=== PATIENT | female | born 1995 | race Caucasian/White ===

== ENCOUNTER 2022-08-08 19:05 | Observation (INO) | payer OTHER, SELFPAY ==
[2022-08-08] VITALS (10 sets, daily range): BP systolic 110; BP diastolic 73; PULSE 73–91; RESP 16; TEMP 36.6; O2SAT 97–100; BMI 25.7
[2022-08-08 19:36] LABS: Glucose Point of Care 82 mg/dl (65-105)
[2022-08-08 20:33] LABS: Hematocrit 37.9 % (37.0-47.0); Hemoglobin 13.1 g/dL (12.0-15.0); Mean Corpuscular HGB Conc 34.6 g/dl (32-36); Mean Corpuscular Hemoglobin 31.3 pg (26-34); Mean Corpuscular Volume 90.5 fl (80-100); Mean Platelet Volume 11.9 fl (7.4-10.4); Platelet Count Result 166 k/mm3 (150-375); Red Blood Count 4.19 M/mm3 (4.2-5.4); Red Cell Distribution Width 12.8 % (11.5-14.5); White Blood Count 17.5 K/mm3 (4.5-10.0)
[2022-08-08 20:40] LABS: Appearance Urine Slightly Cloudy (Clear); Bilirubin Urine Negative (Negative); Blood Urine Negative (Negative); Color Urine Yellow (Yellow); Glucose Urine UA Negative (Negative); Ketones Urine Trace mg/dL (Negative); Leukocyte Esterase Ur 3+ LEU/UL (Negative); Nitrate Urine Negative (Negative); Protein Urine Trace mg/dL (Negative); Urobilinogen Urine 0.2 mg/dL (<2.0)
[2022-08-08 20:45] LABS: Bacteria Urine 3+ /hpf; Mucus Urine Rare /lpf; Squamous Epithelial Cell Urine Moderate /hpf (Few); WBC Urine 51-75 /hpf
[2022-08-08 20:47] LABS: Alanine Aminotransferase 21 U/L (6-35); Albumin Level 3.7 g/dL (3.5-5.1); Alkaline Phosphatase 100 U/L (38-126); Anion Gap 10 mmol/L (8-16); Aspartate Amino Transferase 24 U/L (14-36); Bilirubin,Total 0.4 mg/dL (0.2-1.3); Blood Urea Nitrogen 9 mg/dL (7-17); Calcium 8.6 mg/dL (8.4-10.2); Carbon Dioxide 22 mmol/L (22-30); Chloride 102 mmol/L (98-107); Estimated Glomerular Filt Rate > 60; Glucose 87 mg/dL (65-110); Potassium 3.7 mmol/L (3.4-5.0); Sodium 134 mmol/L (137-145)
--- NOTE | 2022-08-08 20:47 | OBADM ---
This patient, Tiffanie Lam, admitted to the OB room OB Post 116 for observation. Patient/family oriented to hospital policies and general routines including ID bracelet, bed and alarms, visiting hours, pain management, procedures, bathroom and other care routines, personal items, smoking policy, room service/diet, and visiting hours. Patient/Family are encouraged to report perceived risks to care and to ask questions if they do not understand what they are told or what they should do.
[2022-08-08 20:55] LABS: Add Urine Microscopic? YES
[2022-08-08 21:11] LABS: SARS-CoV-2 RNA PCR Negative
[2022-08-08] MEDS: AMPICILLIN TRIHYDRATE 500 MG CAPSULE PO (21:50)
--- NOTE | 2022-08-09 14:24 | PM.OBTRLD ---
OB - Triage/Final Diagnosis Visit Information Date of evaluation: 08/08/22 Reason for evaluation: threatened labor Comments/Additional reasons for admission: I have assessed the risk for this patient, Tiffanie Lam, and determined that she would benefit from observation care. Evaluation Laboratory results: Laboratory Tests 08/08/22 08/08/22 08/08/22 19:29 20:14 20:14 WBC 17.5 H RBC 4.19 L Hgb 13.1 Hct 37.9 MCV 90.5 MCH 31.3 MCHC 34.6 RDW 12.8 Plt Count 166 MPV 11.9 H Sodium 134 L Potassium 3.7 Chloride 102 Carbon Dioxide 22 Anion Gap 10 BUN 9 Creatinine 0.90 Estim Creat Clear Calc Not Reportable Estimated GFR > 60 Glucose 87 POC Capillary Glucose 82 Calcium 8.6 Total Bilirubin 0.4 AST 24 ALT 21 Alkaline Phosphatase 100 Total Protein 7.0 Albumin 3.7 Urine Color Urine Appearance Urine pH Ur Specific [place] Urine Protein Urine Glucose (UA) Urine Ketones Ur Blood (Man) Urine Nitrate Urine Bilirubin Urine Urobilinogen Leukocyte Esterase Rfl Urine RBC Urine WBC Ur Squamous Epith Cells Urine Bacteria Urine Mucus SARS-CoV-2 RNA (RT-PCR) 08/08/22 08/08/22 20:14 20:23 WBC RBC Hgb Hct MCV MCH MCHC RDW Plt Count MPV Sodium Potassium Chloride Carbon Dioxide Anion Gap BUN Creatinine Estim Creat Clear Calc Estimated GFR Glucose POC Capillary Glucose Calcium Total Bilirubin AST ALT Alkaline Phosphatase Total Protein Albumin Urine Color Yellow Urine Appearance Slightly cloudy Urine pH 6.0 Ur Specific [place] 1.020 Urine Protein Trace Urine Glucose (UA) Negative Urine Ketones Trace Ur Blood (Man) Negative Urine Nitrate Negative Urine Bilirubin Negative Urine Urobilinogen 0.2 Leukocyte Esterase Rfl 3+ H Urine RBC 11-20 H Urine WBC 51-75 H Ur Squamous Epith Cells Moderate H Urine Bacteria 3+ H Urine Mucus Rare SARS-CoV-2 RNA (RT-PCR) Negative Vital signs: Vital Signs - 24 hr 08/08/22 19:27 08/08/22 19:37 08/08/22 19:42 Temperature 36.6 C Pulse Rate 87 Respiratory Rate 16 Blood Pressure 110/73 Pulse Oximetry 97 98 Oxygen Delivery 08/08/22 19:47 08/08/22 19:52 08/08/22 19:57 Temperature Pulse Rate Respiratory Rate Blood Pressure Pulse Oximetry 98 99 100 Oxygen Delivery 08/08/22 20:02 08/08/22 20:07 08/08/22 20:12 Temperature Pulse Rate Respiratory Rate Blood Pressure Pulse Oximetry 100 97 97 Oxygen Delivery 08/08/22 20:17 08/08/22 21:36 Temperature Pulse Rate Respiratory Rate Blood Pressure Pulse Oximetry 100 Oxygen Delivery Room Air
== END 2022-08-08 21:53 | disposition home health service (06) ==
PROVIDERS: Advanced Practice Midwife; Admitting Provider Obstetrics & Gynecology; PCP Family Medicine; Visit Provider Obstetrics & Gynecology
DX: O47.03 False labor before 37 completed weeks of gestation, third trimester (principal); Z3A.33 33 weeks gestation of pregnancy; Z20.822 Contact with and (suspected) exposure to COVID-19
CPT/HCPCS: 36415; 80053; 81001; 82948; 85027; 87086; 87088; A9270; C9803; G0378; G0379; U0003; U0005

== ENCOUNTER 2022-09-20 15:38 | Inpatient (IN) | payer OTHER, SELFPAY ==
[2022-09-20] VITALS (25 sets, daily range): BP systolic 100–135; BP diastolic 61–90; PULSE 63–80; TEMP 35.9–36.6; BMI 31.8
[2022-09-20 16:26] LABS: Basophils Percent Auto 0.3 % (0.2-1.2); Eosinophils Absolute Auto 0.1 K/mm3 (0-0.3); Eosinophils Percent Auto 0.6 % (0-4.4); Hematocrit 38.7 % (37.0-47.0); Hemoglobin 13.5 g/dL (12.0-15.0); Immature Granulocyte Absolute 0.06 K/mm3 (0.00-0.031); Immature Granulocyte Percent A 0.6 % (0-0.5); Lymphocytes Absolute Auto 1.87 K/mm3 (0.9-3.2); Lymphocytes Percent Auto 17.2 % (18.3-44.2); Mean Corpuscular HGB Conc 34.9 g/dl (32-36); Mean Corpuscular Hemoglobin 31.2 pg (26-34); Mean Corpuscular Volume 89.4 fl (80-100); Mean Platelet Volume 12.6 fl (7.4-10.4); Monocytes Absolute Auto 0.8 K/mm3 (0.1-0.6); Monocytes Percent Auto 7.2 % (2.6-8.5); Neutrophils Percent Auto 74.1 % (45.5-73.1); Platelet Count Result 141 k/mm3 (150-375); Red Blood Count 4.33 M/mm3 (4.2-5.4); Red Cell Distribution Width 12.7 % (11.5-14.5); White Blood Count 10.9 K/mm3 (4.5-10.0)
--- NOTE | 2022-09-20 16:43 | LDADM ---
This patient, Tiffanie Lam, was admitted to Labor/Delivery/Recovery 107 on 09/20/22 at 15:38. Plans for labor, pain management and were discussed with patient. Patient/family oriented to hospital policies and general routines including ID bracelet, bed and alarms, visiting hours, pain management, procedures, bathroom and other care routines, personal items, smoking policy, room service/diet and guest tray routines, infant security routines, and visiting hours. Patient/Family are encouraged to report perceived risks to care and to ask questions if they do not understand what they are told or what they should do. See OBIX for further documentation.
--- NOTE | 2022-09-20 17:16 | WPDANESEPP ---
Anes - Eval Pre Procedure Procedure: labor epidural Date/Time: 09/20/22 17:16 Pre Op Diagnosis: iol Patient Data Age: 27 Gender: F Height: 1.63 m Weight: 84 kg Last Vital Signs Pulse 75 09/20/22 17:16 BP 118/83 09/20/22 17:16 O2 Del Method Room Air 09/20/22 16:43 Allergies Allergy/AdvReac Type Severity Reaction Status Date / Time No Known Allergies Allergy Verified 08/08/22 21:26 Home Medications Medication Instructions Recorded Confirmed Type ondansetron 4 mg disintegrating 4 mg PO Q6H #8 tabs 08/08/22 Rx tablet albuterol sulfate 90 mcg/actuation 2 puff inhalation QID PRN Wheezing 08/25/22 08/25/22 History aerosol inhaler levothyroxine 50 mcg tablet 50 mcg PO DAILY 08/25/22 08/25/22 History prenat.vits,mario,[id number] 1 tablet PO HS 08/25/22 08/25/22 History Laboratory Tests 09/20/22 09/20/22 09/20/22 16:18 16:18 16:18 WBC 10.9 K/mm3 H K/mm3 (4.5-10.0) RBC 4.33 M/mm3 M/mm3 (4.2-5.4) Hgb 13.5 g/dL g/dL (12.0-15.0) Hct 38.7 % % (37.0-47.0) MCV 89.4 fl fl (80-100) MCH 31.2 pg pg (26-34) MCHC 34.9 g/dl g/dl (32-36) RDW 12.7 % % (11.5-14.5) Plt Count 141 k/mm3 L k/mm3 (150-375) MPV 12.6 fl H fl (7.4-10.4) Immature Gran % (Auto) 0.6 % H % (0-0.5) Neut % (Auto) 74.1 % H % (45.5-73.1) Lymph % (Auto) 17.2 % L % (18.3-44.2) [place] % (Auto) 7.2 % % (2.6-8.5) Eos % (Auto) 0.6 % % (0-4.4) Baso % (Auto) 0.3 % % (0.2-1.2) Lymph # (Auto) 1.87 K/mm3 K/mm3 (0.9-3.2) [place] # (Auto) 0.8 K/mm3 H K/mm3 (0.1-0.6) Eos # (Auto) 0.1 K/mm3 K/mm3 (0-0.3) Baso # (Auto) 0.0 K/mm3 K/mm3 (0.0-0.1) Abs Immat Gran (auto) 0.06 K/mm3 H K/mm3 (0.00-0.031) Absolute Neuts (auto) 8.0 K/mm3 H K/mm3 (1.3-6.7) Absolute Nucleated RBC 0.0 K/mm3 K/mm3 (0.0-0.012) Nucleated RBC % 0.0 % % (0.0-0.2) RPR Pending Blood Type O Positive Antibody Screen Pending Patient hx anesthesia problems: none Family hx anesthesia problems: none Results Review: All pre-operative results and documents have been reviewed as part of the pre-operative evaluation. [facility] Past Medical History Medical History (Updated 09/20/22 @ 17:17 by Marleni Cervantes CRNA) Hypothyroid Family History Family History Father Congestive heart failure Social History Social History Smoking status: Never smoker Substance use: never Spiritual care concerns: No Exam Day of Procedure 09/20/22 17:16 Patient weight: obese Heart: regular rate and rhythm Lungs: normal air movement Airway: Mallampati scale Neurological: alert and oriented
[2022-09-20 17:25] LABS: Rapid Plasma Reagin Non-Reactive (NonReactive)
[2022-09-20] MEDS: miSOPROStol 25 MCG TABLET VAGINAL (18:40)
[2022-09-20] MEDS: LACTATED RINGERS 1,000 ML 125 ML IV CONT (23:10)
[2022-09-21] VITALS (186 sets, daily range): BP systolic 91–145; BP diastolic 35–106; PULSE 56–132; RESP 16–19; TEMP 36–37.1; O2SAT 90–100
[2022-09-21] MEDS: LACTATED RINGERS 1,000 ML 125 ML IV CONT ×2 (00:18→14:00)
[2022-09-21] MEDS: OXYTOCIN 30 UNITS/NS 500 ML 30 UNITS/500 ML BAG IV CONT (04:05)
--- NOTE | 2022-09-21 07:36 | PM.IMHP ---
H&P: HPI History of Present Illness Date/Time: 09/21/22 07:36 Chief Complaint: induction of labor Narrative: Tiffanie is a 27yo G1 at 40.1 for IOL, elective. complicated by hypothyroid and anxiety. GBS neg. Received cytotec x1, labored on that, pitocin augmentation started a couple hours ago. Review of Systems Review of Systems: All systems reviewed & are unremarkable except as noted in HPI and below PMFSH Past Medical History Medical History (Updated 09/21/22 @ 07:37 by Rita Roach MD) Hypothyroid Family History Family History Father Congestive heart failure Social History Social History Smoking status: Never smoker Substance use: never Spiritual care concerns: No Meds Home Medications and Allergies Home Medications Medication Instructions Recorded Confirmed Type ondansetron 4 mg disintegrating 4 mg PO Q6H #8 tabs 08/08/22 Rx tablet albuterol sulfate 90 mcg/actuation 2 puff inhalation QID PRN Wheezing 08/25/22 08/25/22 History aerosol inhaler levothyroxine 50 mcg tablet 50 mcg PO DAILY 08/25/22 09/21/22 History prenat.vits,mario,[id number] 1 tablet PO HS 08/25/22 08/25/22 History Allergies Allergy/AdvReac Type Severity Reaction Status Date / Time No Known Allergies Allergy Verified 09/21/22 01:54 Vital Signs Vital Signs - 24 hr 09/20/22 16:16 09/20/22 16:31 09/20/22 16:46 Temperature Pulse Rate 70 69 73 Blood Pressure 125/90 123/78 122/86 Oxygen Delivery 09/20/22 17:01 09/20/22 17:16 09/20/22 17:31 Temperature Pulse Rate 70 75 67 Blood Pressure 121/79 118/83 118/85 Oxygen Delivery 09/20/22 17:46 09/20/22 18:16 09/20/22 18:31 Temperature Pulse Rate 69 73 78 Blood Pressure 117/84 122/84 124/86 Oxygen Delivery 09/20/22 18:22 09/20/22 18:45 09/20/22 19:01 Temperature 96.7 F L 98 F Pulse Rate 75 Blood Pressure 100/62 Oxygen Delivery 09/20/22 19:14 09/20/22 19:31 09/20/22 19:45 Temperature 97.4 F L 98 F Pulse Rate 67 Blood Pressure 107/61 Oxygen Delivery 09/20/22 20:01 09/20/22 20:14 09/20/22 20:31 Temperature 97.8 F Pulse Rate 69 63 Blood Pressure 124/80 124/81 Oxygen Delivery 09/20/22 20:44 09/20/22 21:01 09/20/22 22:02 Temperature 97.8 F Pulse Rate 78 80 Blood Pressure 127/83 135/87 Oxygen Delivery 09/20/22 22:34 09/20/22 23:01 09/20/22 23:31 Temperature 97.9 F Pulse Rate 75 68 Blood Pressure 122/83 124/84 Oxygen Delivery 09/21/22 00:01 09/21/22 00:32 09/21/22 01:01 Temperature Pulse Rate 68 68 66 Blood Pressure 114/55 L 119/87 130/83 Oxygen Delivery 09/21/22 01:32 09/21/22 02:01 09/20/22 23:36 Temperature 97.3 F L Pulse Rate 71 62 Blood Pressure 104/84 122/83 Oxygen Delivery 09/21/22 01:15 09/21/22 02:31 09/21/22 03:01 Temperature 97.4 F L Pulse Rate 65 58 L Blood Pressure 129/83 136/86 Oxygen Delivery 09/21/22 03:31 09/21/22 04:01 09/21/22 03:15 Temperature 97.1 F L Pulse Rate 59 L Blood Pressure 106/65 99/62 L Oxygen Delivery 09/21/22 04:31 09/21/22 05:01 09/21/22 05:31 Temperature Pulse Rate 60 56 L 65 Blood Pressure 121/85 127/86 120/83 Oxygen Delivery 09/21/22 04:56 09/21/22 06:01 09/21/22 06:31 Temperature 97.7 F Pulse Rate 61 76 Blood Pressure 117/84 117/84 Oxygen Delivery 09/21/22 07:01 09/20/22 16:43 Temperature Pulse Rate 73 Blood Pressure 119/84 Oxygen Delivery Room Air Exam Const: General: no acute distress Resp: Effort & Inspection: normal respiratory effort Auscultation: clear to auscultation bilaterally Cardio: Rate: regular rate Rhythm: regular rhythm GI: GI Palp: Yes Soft to palpation Extrem: General: normal to inspection H&P: Results Labs Labs: Short CBC 09/20/22 Range/Units 16:18 WBC 1
--- NOTE | 2022-09-21 14:30 | PM.OBPNLAB ---
Pain Control Date/time seen: 09/21/22 14:30 Pain control: tolerating well and epidural Pelvic Exam Dilation (cm): 7 Effacement (%): 85 station: -2 Amniotic membrane status: Ruptured Contractions Contraction pattern: Irregular Status status: Category ll Comments: 140 mod variability, one late Assessment and Plan Pitocin rate (mU/min): 2 Assessment: induction ongoing Comments: contractions now very inadequate FHT reassuring at this time. Pitocin back on. Discussed that it has been difficult to keep contractions adequate and FHT reassuring at same time. Did discuss possibility of CS if unable to run pitocin to keep labor progressing. Questions answered, support given.
--- NOTE | 2022-09-21 15:09 | WPDANESEPPF ---
Anes - Initial Pre Proc Eval Procedure: Operation Date: 09/21/22 15:30 Proposed Procedures p Section - Rita Roach MD Date/Time: 09/21/22 15:09 Surgeon: Rita Roach MD Pre Op Diagnosis: iol Patient Data Age: 27 Gender: F Height: 1.63 m Weight: 84 kg Last Vital Signs Temp 36.6 C 09/21/22 14:04 Pulse 76 09/21/22 15:01 BP 116/72 09/21/22 15:01 Pulse Ox 100 09/21/22 15:08 O2 Del Method Room Air 09/20/22 16:43 Allergies Allergy/AdvReac Type Severity Reaction Status Date / Time No Known Allergies Allergy Verified 09/21/22 01:54 Home Medications Medication Instructions Recorded Confirmed Type ondansetron 4 mg disintegrating 4 mg PO Q6H #8 tabs 08/08/22 Rx tablet albuterol sulfate 90 mcg/actuation 2 puff inhalation QID PRN Wheezing 08/25/22 08/25/22 History aerosol inhaler levothyroxine 50 mcg tablet 50 mcg PO DAILY 08/25/22 09/21/22 History prenat.vits,mario,efo-[id number] 1 tablet PO HS 08/25/22 08/25/22 History Laboratory Tests 09/20/22 09/20/22 09/20/22 16:18 16:18 16:18 WBC 10.9 K/mm3 H K/mm3 (4.5-10.0) RBC 4.33 M/mm3 M/mm3 (4.2-5.4) Hgb 13.5 g/dL g/dL (12.0-15.0) Hct 38.7 % % (37.0-47.0) MCV 89.4 fl fl (80-100) MCH 31.2 pg pg (26-34) MCHC 34.9 g/dl g/dl (32-36) RDW 12.7 % % (11.5-14.5) Plt Count 141 k/mm3 L k/mm3 (150-375) MPV 12.6 fl H fl (7.4-10.4) Immature Gran % (Auto) 0.6 % H % (0-0.5) Neut % (Auto) 74.1 % H % (45.5-73.1) Lymph % (Auto) 17.2 % L % (18.3-44.2) [place] % (Auto) 7.2 % % (2.6-8.5) Eos % (Auto) 0.6 % % (0-4.4) Baso % (Auto) 0.3 % % (0.2-1.2) Lymph # (Auto) 1.87 K/mm3 K/mm3 (0.9-3.2) [place] # (Auto) 0.8 K/mm3 H K/mm3 (0.1-0.6) Eos # (Auto) 0.1 K/mm3 K/mm3 (0-0.3) Baso # (Auto) 0.0 K/mm3 K/mm3 (0.0-0.1) Abs Immat Gran (auto) 0.06 K/mm3 H K/mm3 (0.00-0.031) Absolute Neuts (auto) 8.0 K/mm3 H K/mm3 (1.3-6.7) Absolute Nucleated RBC 0.0 K/mm3 K/mm3 (0.0-0.012) Nucleated RBC % 0.0 % % (0.0-0.2) RPR Non-reactive (NonReactive) Blood Type O Positive Antibody Screen Negative Patient hx anesthesia problems: none Family hx anesthesia problems: none Results Review: All pre-operative results and documents have been reviewed as part of the pre-operative evaluation. [facility] Past Medical History Medical History (Updated 09/21/22 @ 07:37 by Rita Roach MD) Hypothyroid Surgical History Surgical History (Updated 09/21/22 @ 15:09 by Samuel Decker MD) H/O sinus surgery Family History Family History Father Congestive heart failure Social History Social History Smoking status: Never smoker Substance use: never Spiritual care concerns: No Anes - Eval Final PreProcedure Day of Procedure 09/21/22 15:09 Patient weight: obese Heart: regular rate and rhythm Lungs: clear to auscultation Airway: Mallampati scale class 1 Neurological: alert and oriented Last oral intake: >/= 8 hours ASA classification: II Emergent: no Anesthetic plan: proceed Anesthesia type and monitoring: regional (Labor epidural in place and working well) epidural and standard monitoring Results Review: All pre-operative results and documents have been reviewed as part of the pre-operative evaluation. Informed Consent: The patient's anesthetic plan and its attendant risks and benefits were discussed with the patient/family/POA. Questions were solicited and answers provided to the satisfaction of the patient/family/POA.
--- NOTE | 2022-09-21 15:11 | WPDHPUPDATE1 ---
History and Physical Update Update Date/Time: 09/21/22 15:11 History and Physical has been reviewed, including an updated exam of the patient. With even 1 or 2 milliunits of pitocin, variability goes from moderate to minimal or absent and late decelerations return. We discussed that being remote from delivery and unable to run pitocin, I recommend a delivery. We discussed RBA and pt and SO agree. Pitocin off. Will proceed within the hour. FHT reassuring when pitocin off. Risks, benefits, and alternatives have been discussed and questions answered. Patient agrees to proceed with procedure.
[2022-09-21] MEDS: ceFAZolin 2 GM/D5W 50 ML 2 GM/50 ML BAG IVPB (15:40)
[2022-09-21] MEDS: TRANEXAMIC ACID 1,000 MG/10 ML AMPUL 1000 MG IV PUSH (16:06)
[2022-09-21] MEDS: METHYLERGONOVINE MALEATE 0.2 MG/ML VIAL IM (16:07)
[2022-09-21] MEDS: KETOROLAC 30 MG/ML VIAL (*BKC) 15 MG IV PUSH (16:45)
--- NOTE | 2022-09-21 16:57 | PM.OBPRVD ---
OB - Delivery Note Procedure Delivery date: 09/21/22 Procedure: Procedures Operation Date: 09/21/22 15:30 <No data on this case meets the specified criteria> Primary Low Transverse Section Events: Elective Induction of Labor Intrapartal Events: Failed Induction of Labor, Decelerations and Non-Reassuring Status Induction method: AROM, Per Misoprostol Protocol and Per Pitocin Protocol Delivery monitor: External FHT and Internal Uterine Route of delivery: Prior to decision for section, ACOG/SMFM labor guidelines were considered and discussed with the patient and staff. Decision made to proceed with the section.: Yes Specimen: Yes (placenta) Quantitative Blood Loss (ml): 1,375 Anesthesia type: Epidural Disposition: Floor Complications: none Narrative: The patient was taken to the OR and had her epidural anesthesia dosed adequately. She was placed in dorsal supine position with left lateral tilt. SCDs and gifford had been placed. She was prepped and draped in the normal sterile fashion. A Pfannensteil skin incision was made and carried through to the underlying layer of fascia. The fascia was incised in the midline and then extended laterally using Saldivar scissors. The muscles were in the midline and the peritoneum was entered bluntly. The peritoneal incision was extended inferiorly and superiorly with care to avoid the bladder. The bladder blade was then inserted, the vesicouterine peritoneum was grasped, incised with Metzenbaum scissors, and a bladder flap created. The bladder blade was reinserted. A low transverse uterine incision was made with a scalpel and extended bluntly. AROM was performed and fluid was noted to be clear. The head was delivered, followed by the remainder of the baby. The baby's oropharynx was suctioned. After 60 seconds, the cord was clamped and cut and the infant was handed off. Cord blood was obtained and the placenta was then removed manually. The uterus was exteriorized. A moist lap sponge was used to curette the endometrium. The uterine incision was then closed with two layer of 0-Vicryl in a running, locking fashion. Good hemostasis was noted. The posterior cul de sac was irrigated with normal saline and cleared of all clot and debris. Very significant atony was noted and treated with tranexamic acid, pitocin, and methergine. It improved after about 10 minutes. The uterus was returned to the abdomen. Both lateral gutters were then irrigated. A pumping vessel was noted at the right lateral aspect of the incision. The uterus was removed from the pelvis again, the vessel was isolated, grasped with a peon, and sutured. Hemostasis was noted upon reinspection of the area multiple times. The rectus muscles were inspected and found to be hemostatic. The fascia had a rent superiorly that was reapproximated. The fascia was then reapproximated using 0-Vicryl in running fashion. The subcutaneous tissue was irrigated with normal saline and made hemostatic with Bovie electrocautery. The subcutaneous tissue was reapproximated with a layer of running 2-0 plain gut. The skin was then closed with absorbable pamela. Steri strips and a bandage were applied. The uterus was evacuated. EBL was 1375 primarily from atony that was slow to respond to medications, but also from the larger bleeding vessel at the hysterotomy. The patient tolerated the procedure very well. All counts were correct. She was taken to the recovery room in good condition. [place] Baby Date of : 09/21/22 Time of : 16:01 Weeks of gestation at delivery: 40 Infant gender: Male Weight (pounds): 8 Weight (ounces): 5 presentation: vertex Placenta delivery description: Manual Removal Cord Vessel Description: 3 Vessels and Delayed Cord Clamping score one minute: 8 score five minutes: 9
[2022-09-21 19:11] LABS: Hematocrit 33.3 % (37.0-47.0); Hemoglobin 11.4 g/dL (12.0-15.0)
[2022-09-21] MEDS: LANOLIN (LANSINOH) 7.5 GM CREAM 1 APPLIC TOPICAL (20:45)
[2022-09-21] MEDS: SIMETHICONE 80 MG TAB.CHEW PO (20:45)
[2022-09-21] MEDS: HYDROcodone/acetaminophen (*CRX) 10-325 MG TABLET 1 TAB PO (20:45)
--- NOTE | 2022-09-21 22:00 | OBPPTRN ---
Patient transferred to post room #285 via ( stretcher ). Support person present. Oriented to unit, room, information board, rooming in, admission packet and security measures. Patient verbalizes understanding.
[2022-09-22] VITALS: BP 129/78; PULSE 104; RESP 16; TEMP 37.2; O2SAT 97
[2022-09-22] MEDS: IBUPROFEN 600 MG TABLET PO ×3 (00:06→21:55)
[2022-09-22] MEDS: SIMETHICONE 80 MG TAB.CHEW PO ×3 (00:07→11:46)
[2022-09-22] MEDS: HYDROcodone/acetaminophen (*CRX) 10-325 MG TABLET 1 TAB PO ×4 (00:07→17:52)
[2022-09-22 04:00] VITALS: BP 120/84; PULSE 98; RESP 16; TEMP 36.9; O2SAT 98
[2022-09-22 05:32] LABS: Basophils Percent Auto 0.2 % (0.2-1.2); Eosinophils Percent Auto 0.1 % (0-4.4); Hemoglobin 9.6 g/dL (12.0-15.0); Immature Granulocyte Absolute 0.17 K/mm3 (0.00-0.031); Immature Granulocyte Percent A 0.9 % (0-0.5); Immature Platelet Fraction Pct 15.2 % (0.9-11.2); Lymphocytes Absolute Auto 1.21 K/mm3 (0.9-3.2); Lymphocytes Percent Auto 6.4 % (18.3-44.2); Mean Corpuscular HGB Conc 34.3 g/dl (32-36); Mean Corpuscular Hemoglobin 30.4 pg (26-34); Mean Corpuscular Volume 88.6 fl (80-100); Mean Platelet Volume 13.6 fl (7.4-10.4); Monocytes Absolute Auto 1.4 K/mm3 (0.1-0.6); Monocytes Percent Auto 7.2 % (2.6-8.5); Neutrophils Percent Auto 85.2 % (45.5-73.1); Platelet Count Result 109 k/mm3 (150-375); Red Blood Count 3.16 M/mm3 (4.2-5.4); Red Cell Distribution Width 12.8 % (11.5-14.5); White Blood Count 18.8 K/mm3 (4.5-10.0)
--- NOTE | 2022-09-22 10:01 | P.PNOB_ITS ---
OB - PN: Subj Subjective Date/time seen: 09/22/22 10:01 s/p delivery day 1 OB - PN: Obj Data Labs CBC & Chem 7: 09/22/22 04:08 Labs: Laboratory Results - last 24 hr 09/21/22 09/22/22 19:00 04:08 WBC 18.8 H RBC 3.16 L Hgb 11.4 L 9.6 L Hct 33.3 L 28.0 L MCV 88.6 MCH 30.4 MCHC 34.3 RDW 12.8 Plt Count 109 L MPV 13.6 H Immature Gran % (Auto) 0.9 H Neut % (Auto) 85.2 H Lymph % (Auto) 6.4 L [place] % (Auto) 7.2 Eos % (Auto) 0.1 Baso % (Auto) 0.2 Lymph # (Auto) 1.21 [place] # (Auto) 1.4 H Eos # (Auto) 0.0 Baso # (Auto) 0.0 Abs Immat Gran (auto) 0.17 H Absolute Neuts (auto) 16.0 H Absolute Nucleated RBC 0.0 Nucleated RBC % 0.0 % Immature Plt Fraction 15.2 H OB - PN A/P Plan day: 1 Plan: routine care Time Spent With Patient Time: Total time spent is greater than 50% in coordination of care (as documented) at patient's floor/unit and/or counseling patient: Review of Systems 2 Review of Systems: All systems reviewed & are unremarkable except as noted in HPI and below Exam Narrative: incision CDI Const: General: cooperative and healthy appearing
[2022-09-22 11:30] VITALS: BP 116/72; PULSE 71; PULSE 98; RESP 16; TEMP 36.8; O2SAT 98; O2SAT 99
[2022-09-22] MEDS: MULTIVIT/MIN/PREN/FOL AC/IRON TABLET 1 TAB PO (11:45)
[2022-09-22] MEDS: DOCUSATE SODIUM 100 MG CAPSULE PO ×2 (11:46→17:53)
[2022-09-22] MEDS: LEVOTHYROXINE SODIUM 50 MCG TABLET PO (11:47)
[2022-09-22] MEDS: IRON SUCROSE COMPLEX 200 MG in SODIUM CHLORIDE 0.9% IV 50 ML 120 MG IVPB (11:47)
[2022-09-22] MEDS: POLYSACCHARIDE IRON COMPLEX 150 MG CAPSULE PO ×2 (11:47→17:53)
--- NOTE | 2022-09-22 12:18 | WPDANLDPN2 ---
Anes-Prog Note L&D Date/Time: 09/22/22 12:18 Comfortable throughout: labor and section Neuraxial method: epidural Epidural/Spinal procedure site: clean & non-tender Neuro status: Neuro function grossly intact. Cardiovascular status: normal Respiratory status: normal Airway patency: baseline Mental status: baseline Post-Op hydration status: normal Vital Signs: Last Vital Signs Temp 36.9 C 09/22/22 04:00 Pulse 98 09/22/22 04:00 Resp 16 09/22/22 04:00 BP 120/84 09/22/22 04:00 Pulse Ox 98 09/22/22 04:00 O2 Del Method Room Air 09/21/22 16:58 Pain score (VAS): 2/10 I/O: Intake & Output 09/21/22 09/22/22 09/22/22 23:59 07:59 15:59 Intake Total 240 400 Output Total 1525 500 Balance -1285 -100 Post-procedural complaints: none Patient feedback: Patient satisfied with anesthetic care.
--- NOTE | 2022-09-22 12:19 | WPDANLDNPN2 ---
Anes-Prog Note L&D-Neuraxial Date/Time: 09/22/22 12:19 Neuraxial medications: epidural PF morphine Opiod-related complaints: none Patient feedback: Patient satisfied with post-operative pain management.
[2022-09-22] MEDS: HYDROcodone/acetaminophen (*CRX) 5-325 MG TABLET 1 TAB PO ×2 (14:34→21:56)
[2022-09-22 20:00] VITALS: BP 100/69; PULSE 83; RESP 18; TEMP 36.8; O2SAT 98
[2022-09-23] MEDS: HYDROcodone/acetaminophen (*CRX) 5-325 MG TABLET 1 TAB PO ×3 (05:09→12:12)
[2022-09-23] MEDS: LEVOTHYROXINE SODIUM 50 MCG TABLET PO (06:29)
[2022-09-23] MEDS: MULTIVIT/MIN/PREN/FOL AC/IRON TABLET 1 TAB PO (08:20)
[2022-09-23] MEDS: DOCUSATE SODIUM 100 MG CAPSULE PO (08:20)
[2022-09-23] MEDS: IBUPROFEN 600 MG TABLET PO (08:20)
[2022-09-23] MEDS: SIMETHICONE 80 MG TAB.CHEW PO (08:20)
[2022-09-23 08:30] VITALS: BP 113/73; PULSE 89; RESP 16; TEMP 36.8; O2SAT 98
[2022-09-23] MEDS: POLYSACCHARIDE IRON COMPLEX 150 MG CAPSULE PO (10:01)
--- NOTE | 2022-09-23 11:10 | PM.OBPNVD ---
OB - PN: Subj Subjective Date/time seen: 09/23/22 11:10 s/p section day 2 doing well, no complaints OB - PN: Obj Data Labs CBC & Chem 7: 09/22/22 04:08 OB - PN A/P Plan day: 2 Plan: routine care and discharge home Time Spent With Patient Time: Total time spent is greater than 50% in coordination of care (as documented) at patient's floor/unit and/or counseling patient: Review of Systems Review of Systems: All systems reviewed & are unremarkable except as noted in HPI and below Exam Narrative: Incision CDI
--- NOTE | 2022-09-23 11:13 | PM.OBDSVD ---
DS: Admitting Diagnosis Discharge Date 09/23/22 Admitting Diagnosis IOL OB - DS: Summary OB Procedures : None OB Procedures Intrapartum: Spontaneous Vag Delivery OB Procedures: : None Peripartum Data Procedures: Procedures Operation Date: 09/21/22 15:30 Actual Procedure Side Surgeon p Section Bilateral Rita Roach MD Time Spent with Patient Time attestation: Total time spent providing and/or coordinating discharge services: DS: Data Data Completed and Pending Pending studies at discharge: Pending at discharge 09/21/22 17:17 Surgical [PTH] Routine Discharge Plan Discharge Attending physician on discharge: Janae Albarran Discharging Clinician: Lois Dong Patient Disposition: Home, Self-Care Activity: pelvic rest Diet: regular Patient Instructions: Antibiotic Form Stand Alone Forms: General Discharge Information Follow-up/Referrals: Rita Roach MD [Physician] - 1 Week Discharge Medications: New hydrocodone-acetaminophen 5-325 mg Tablet 1 tablet PO Q3H PRN (Reason: Moderate Pain (4-6)) Qty: 20 0RF ibuprofen 600 mg Tablet 600 mg PO Q6H PRN (Reason: Cramping) Qty: 30 0RF Continued levothyroxine 50 mcg Tablet 50 mcg PO DAILY #2 Tablet 1 tablet PO HS albuterol sulfate 90 mcg/actuation Hfa Aerosol Inhaler 2 puff INHALATION QID PRN (Reason: Wheezing) Discontinued ondansetron 4 mg Tablet,Disintegrating 4 mg PO Q6H Qty: 8 0RF Rx Instructions: use for nausea Date of admission: 09/20/22 15:38 Primary Care Provider: Tangela,Samuel Elizabeth Admitting Provider: Rita Roach Attending physician on admission: Rita Roach Condition: Stable
--- NOTE | 2022-09-23 14:00 | PC.NURSE ---
Patient viewed the discharge video Mother & Baby Care, The First Two Weeks . Patient was given the opportunity and encouraged to ask questions. Patient verbalized understanding of information shared and has been given the mother/baby guide for home reference.
[2022-09-24 07:54] VITALS: BP 129/81; PULSE 89; RESP 16; TEMP 36.4; O2SAT 100
== END 2022-09-23 14:30 | disposition home or self-care (01) | DRG 788 ==
LOC: ANHLDR 15:42 → ANHOB2 09-21 20:06
PROVIDERS: Admitting Provider Obstetrics & Gynecology; PCP Family Medicine; Visit Provider Obstetrics & Gynecology
PROC: 10D00Z1 Extraction of Products of Conception, Low, Open Approach (ICD-10-PCS; CPT 59514; principal; 2022-09-21 15:30)
DX: O99.284 Endocrine, nutritional and metabolic diseases complicating childbirth (principal); Z37.0 Single live birth; Z3A.40 40 weeks gestation of pregnancy; O36.8330 Maternal care for abnormalities of the fetal heart rate or rhythm, third trimester, not applicable or unspecified; E03.9 Hypothyroidism, unspecified; O99.344 Other mental disorders complicating childbirth; F41.9 Anxiety disorder, unspecified; O72.1 Other immediate postpartum hemorrhage
CPT/HCPCS: 36415; 85014; 85018; 85025; 85055; 86592; 86850; 86900; 86901; 88307; A9270; J0131; J0456; J0690; J1756; J1885; J2175; J2210; J2274; J2370; J2405; J2590; J2795; J7120

== ENCOUNTER 2024-01-14 00:35 | Day surgery (SDC) | payer OTHER, SELFPAY ==
[2024-01-03 12:48] VITALS: BMI 25.7
--- NOTE | 2024-01-03 12:52 | PC.NURSE ---
Report to the Outpatient Waiting Room, entrance under the green pavilion located off [facility], at time 1130 on date 01/14/24. Planned Procedure Time: 1330. Time changes happen often and if your time is changed the preop area will call you the afternoon before. - You and your visitor will be asked to self-screen and do not enter if you have any COVID symptoms. - A mask is optional within the hospital at this time. Patients may have clear liquids (water, carbonated beverages, clear teas, apple juice) until 3 hours prior to surgery with a maximum of 20 ounces. - No food from midnight until time of surgery Take the following medications with a SIP of water the morning of surgery: BUSPIRONE, LEVOTHYROXINE DO NOT STOP ANY OF YOUR OTHER PRESCRIPTION MEDICATIONS PRIOR TO SURGERY ?EXCEPT THE FOLLOWING Medications to discontinue per physician: VITAMINS Date to take last dose: 01/10/24 Please no make-up, nail monegasque, hairspray, perfume, deodorant, or body powder the day of surgery. No jewelry (including any body piercings) or valuables the day of surgery, leave them at home. Please take a shower or bath the night before, or the morning of, surgery with an antibacterial soap. Wear comfortable, loose fitting clothing. - Jewelry must be removed prior to entering the operating room. Rings and piercings that are not removed may be cut off. - The hospital will not accept responsibility for valuables. - Please leave all valuables, including medications, at home the day of surgery. If you are going home after surgery, a licensed corrugated fastener driver must drive you home. - NO public transportation without another adult if you receive anesthesia. - We recommend that an adult stay with you for 24 hours following discharge. - We also recommend that you do not drive, make important decision, drink alcoholic beverages, or take any drugs that were not prescribed by your health care provider for at least 24 hours after your discharge time. Follow any additional instructions given to you from your surgeon. If you or anyone in your household have experienced Covid symptoms in the past week, please notify your surgeon or the nurse liaison at the phone number below for possible testing. Telephone instructions given to PT - EM CHAIREZ and asked if any additional questions and then verbalized understanding. Patient advised to call surgeon office or pre surgery nurse liaison [phone] if any additional questions.
[2024-01-14] MEDS: ACETAMINOPHEN 500 MG TABLET 1000 MG PO (12:15)
[2024-01-14] MEDS: LACTATED RINGERS 1,000 ML 30 ML IV CONT (12:22)
[2024-01-14 12:25] VITALS: BP 112/72; PULSE 77; RESP 16; TEMP 37.1; O2SAT 100
[2024-01-14] MEDS: KETOROLAC 15 MG/ML VIAL (*BKC) IV PUSH (12:28)
--- NOTE | 2024-01-14 12:48 | P.PNAN_ITS ---
Anes - Initial Pre Proc Eval Procedure: Operation Date: 01/14/24 13:30 Proposed Procedures p Removal of Ganglion Cyst Right Wrist - Janusz Singletary MD Date/Time: 01/14/24 12:48 Surgeon: Janusz Singletary MD Pre Op Diagnosis: Rt Wrist Ganglion Cyst Patient Data Age: 28 Gender: F Height: 1.63 m Weight: 70.8 kg Last Vital Signs Temp 37.1 C 01/14/24 12:25 Pulse 77 01/14/24 12:25 Resp 16 01/14/24 12:25 BP 112/72 01/14/24 12:25 Pulse Ox 100 01/14/24 12:25 O2 Del Method Room Air 01/14/24 12:25 Allergies Allergy/AdvReac Type Severity Reaction Status Date / Time No Known Allergies Allergy Verified 01/14/24 12:04 Home Medications Medication Instructions Recorded Confirmed Type albuterol sulfate 90 mcg/actuation 2 puff inhalation QID PRN Wheezing 08/25/22 01/08/24 History aerosol inhaler levothyroxine 50 mcg tablet 50 mcg PO DAILY 08/25/22 01/14/24 History buspirone 5 mg tablet 15 mg PO BID 12/18/23 01/14/24 History multivitamin 1 tablet PO DAILY 01/03/24 01/14/24 History hydrocodone 5 mg-acetaminophen 325 1 - 2 tablet PO Q4-6H PRN pain #15 01/14/24 Rx mg tablet tabs Patient hx anesthesia problems: none Family hx anesthesia problems: none Results Review: All pre-operative results and documents have been reviewed as part of the pre- operative evaluation. [facility] Past Medical History Medical History Hypothyroid Surgical History Surgical History H/O sinus surgery (~2011) Septoplasty History of delivery (~08/2022) Family History Family History Father Congestive heart failure Social History Social History Smoking status: Never smoker Alcohol intake: current Drinks per week: 1 Substance use: never Substance use type: does not use Do You Feel Safe in your Home?: Yes Lack of Transportation: No Lack of Food: Never True Current Housing: I Have Housing Concerned About Future Housing: No Difficulty Paying Gas/Electric Bills: No Difficulty Paying for Meds: No Currently Unemployed: No Education: Master's Degree or Higher Difficulty w/ Childcare or Family Care: No Living arrangements: with family Spiritual care concerns: No Anes - Eval Final PreProcedure Day of Procedure 01/14/24 12:48 Patient weight: overweight Heart: regular rate and rhythm Lungs: clear to auscultation Airway: Mallampati scale class 1 Neurological: alert and oriented Last oral intake: >/= 8 hours ASA classification: II Emergent: no Anesthetic plan: proceed Anesthesia type and monitoring: general GIVS and standard monitoring Results Review: All pre-operative results and documents have been reviewed as part of the pre- operative evaluation. Informed Consent: The patient's anesthetic plan and its attendant risks and benefits were discussed with the patient/family/POA. Questions were solicited and answers provided to the satisfaction of the patient/family/POA.
--- NOTE | 2024-01-14 12:50 | WPDHPUPDATE1 ---
History and Physical Update Update Date/Time: 01/14/24 12:50 History and Physical has been reviewed, including an updated exam of the patient. There are NO changes in the patient's condition. Risks, benefits, and alternatives have been discussed and questions answered. Patient agrees to proceed with procedure.
[2024-01-14] MEDS: ceFAZolin 2 GM/D5W 50 ML 2 GM/50 ML BAG IVPB (12:55)
[2024-01-14] MEDS: BUPIVACAINE/EPINEPHRINE 0.5% 10 ML VIAL INFILTRATE (13:16)
[2024-01-14 13:32] VITALS: BP 105/66; PULSE 72; RESP 16; O2SAT 100
[2024-01-14] MEDS: oxyCODONE HCL (*CRX) 5 MG TAB IR PO (13:58)
[2024-01-14 14:00] VITALS: BP 94/64; PULSE 87; RESP 16
--- NOTE | 2024-01-14 14:12 | W.PM.PROC2 ---
Procedure Note - Detailed Date of Procedure 01/14/24 Pre-op Diagnosis Rt Wrist Dorsal Ganglion Cyst Post-op Diagnosis Same Procedure Performed Excision right wrist dorsal ganglion cyst. Surgeon Janusz Singletary MD Anesthesia General Findings Symptomatic small dorsal ganglion cyst off of the dorsal capsule. Benign appearance. Description of Procedure Preoperative antibiotics given. General anesthetic administered. The hand was prepped and draped in usual sterile fashion. The tourniquet was inflated to 225 mmHg. Transverse incision created over the dorsal ganglion cyst which was located in the typical location. Careful blunt dissection with tenotomy scissors revealed the cyst off of the dorsal capsule. The cyst was completely excised and the capsule was oversewn with 4-0 Monocryl suture. The tourniquet was released. Hemostasis obtained. 4 mL of 0.5% Marcaine injected in the periarticular tissues and joint capsule. Subcutaneous tissues were closed with 4-0 Monocryl sutures and Steri-Strips. Sterile bulky dressing applied. Patient brought to the recovery room in stable condition. Estimated Blood Loss 1 Packing No Pathology None sent Complications No immediate complications Condition Stable Disposition PACU [facility] Billing Surgery - Charge Forward: Surgery Billing
[2024-01-14 14:30] VITALS: BP 105/68; PULSE 69; RESP 16
== END 2024-01-14 14:54 | disposition home or self-care (01) ==
PROVIDERS: PCP Registered Nurse; Visit Provider Orthopaedic Surgery
PROC: (CPT 25111; principal; 2024-01-14 13:30)
DX: M67.431 Ganglion, right wrist (principal)
CPT/HCPCS: 25111; A9270; J0690; J1885; J2250; J2704; J7120

== ENCOUNTER 2024-10-25 05:06 | Emergency (ER) | payer BC, SELFPAY ==
--- NOTE | ~2024-10-25 | US_ITS ---
EXAMINATION: US pelvic complete DATE: 10/25/2024 07:54 INDICATION: bleeding. TECHNIQUE: Multiple transabdominal sonographic images of the pelvis were obtained. COMPARISON: None. FINDINGS: The uterus measures 13.8 x 6.9 x 9.6 cm. There is no free fluid in the pelvis. The endometrial comple x measures 16 mm in thickness. The right ovary measures 1.7 x 1.5 x 1.6 cm. The left ovary measures 3 .5 x 1.7 x 1.3 cm. There is normal vascular flow in the ovaries. IMPRESSION: 1. Thickened endometrial complex, which may be hematoma or retained products of conception. Reviewed, dictated and finalized at location A. [employer]T[facility] TECHNICIAN
[2024-10-25 05:06] VITALS: BP 115/78; PULSE 72; RESP 16; TEMP 36.6; O2SAT 100
[2024-10-25 05:39] LABS: Basophils Absolute Auto 0.1 K/mm3 (0.0-0.1); Basophils Percent Auto 0.8 % (0.2-1.2); Eosinophils Absolute Auto 0.2 K/mm3 (0-0.3); Eosinophils Percent Auto 1.9 % (0-4.4); Hematocrit 34.1 % (37.0-47.0); Hemoglobin 11.3 g/dL (12.0-15.0); Immature Granulocyte Absolute 0.04 K/mm3 (0.00-0.031); Immature Granulocyte Percent A 0.5 % (0-0.5); Lymphocytes Absolute Auto 1.85 K/mm3 (0.9-3.2); Lymphocytes Percent Auto 23.8 % (18.3-44.2); Mean Corpuscular HGB Conc 33.1 g/dl (32-36); Mean Corpuscular Hemoglobin 30.1 pg (26-34); Mean Corpuscular Volume 90.9 fl (80-100); Mean Platelet Volume 11.3 fl (7.4-10.4); Monocytes Absolute Auto 0.5 K/mm3 (0.1-0.6); Monocytes Percent Auto 6.3 % (2.6-8.5); Neutrophils Absolute Auto 5.2 K/mm3 (1.3-6.7); Neutrophils Percent Auto 66.7 % (45.5-73.1); Platelet Count Result 292 k/mm3 (150-375); Red Blood Count 3.75 M/mm3 (4.2-5.4); Red Cell Distribution Width 12.8 % (11.5-14.5); White Blood Count 7.8 K/mm3 (4.5-10.0)
[2024-10-25 05:50] LABS: Alanine Aminotransferase 19 U/L (6-35); Albumin Level 3.8 g/dL (3.5-5.1); Alkaline Phosphatase 94 U/L (38-126); Anion Gap 6 mmol/L (4-12); Aspartate Amino Transferase 21 U/L (14-36); Bilirubin,Total 0.5 mg/dL (0.2-1.3); Blood Urea Nitrogen 13 mg/dL (7-17); Calcium 8.5 mg/dL (8.4-10.2); Carbon Dioxide 25 mmol/L (22-30); Chloride 107 mmol/L (98-107); Estimated CRCL calculation 89 ml/min; Estimated Glomerular Filt Rate > 60; Glucose 92 mg/dL (65-110); Potassium 3.8 mmol/L (3.4-5.0); Sodium 138 mmol/L (137-145)
[2024-10-25 05:54] LABS: INR 1.1; Partial Thromboplastin Time 28.4 Seconds (22.3-36.8); Prothrombin Time 14.4 Seconds (11.1-14.7)
[2024-10-25 06:07] LABS: Beta HCG Quantitative 12.41 mIU/ML
--- NOTE | 2024-10-25 06:07 | ED.PREGNANCY ---
HPI - General Chief complaint: Vaginal Bleeding <Ammon Lynn MD - Last Filed: 10/25/24 07:18> Stated complaint: excessive pp bleeding - delivered 10/16 <Ammon Lynn MD - Last Filed: 10/25/24 07:18> Time Seen by Provider: 10/25/24 05:27 <Ammon Lynn MD - Last Filed: 10/25/24 07:18> History of Present Illness HPI Narrative: 29-year-old female who is 8 days after delivering a healthy baby boy over at [facility]. Patient's OBGYN is in the [facility]. She presents today after having persistent vaginal bleeding. She states she was discharged home after about 24 hours after her delivery and did not have any vaginal bleeding for the 1st few days but for last 3 days she has been passing golf ball size clots. She called her OB and they said not to worry about unless it got bigger and had profound bleeding. Patient states that today she started having larger clots and was filling up 1 pad per hour at a minimum. She denies any chest pain, difficulty breathing, abdominal pain, pelvic pain, lightheadedness sensations. She states her vaginal delivery was only complicated by minor tearing that was repaired primarily with suture. No hemorrhage immediately after the delivery, no reported placental abruption or difficulty delivering the placenta. Patient denies any back pain, fever, chills and has otherwise been in her normal state of health. Of note this delivery was a vaginal delivery after previous Caesarean section. <Ammon Lynn MD - Last Filed: 10/25/24 07:18> Related Data Home medications: Home Medications Medication Instructions Recorded Confirmed albuterol sulfate 90 mcg/actuation 2 puff inhalation QID PRN Wheezing 08/25/22 02/24/24 aerosol inhaler levothyroxine 50 mcg tablet 50 mcg PO DAILY 08/25/22 02/24/24 buspirone 5 mg tablet 15 mg PO BID 12/18/23 02/24/24 multivitamin 1 tablet PO DAILY 01/03/24 02/24/24 <Ammon Lynn MD - Last Filed: 10/25/24 07:18> Allergies/Adverse reactions: Allergies Allergy/AdvReac Type Severity Reaction Status Date / Time No Known Allergies Allergy Verified 02/24/24 10:58 <Ammon Lynn MD - Last Filed: 10/25/24 07:18> Review of Systems Review of Systems: As reviewed above in the HPI <Ammon Lynn MD - Last Filed: 10/25/24 07:18> PMFSH Past Medical History Medical History: Medical History Hypothyroid <Ammon Lynn MD - Last Filed: 10/25/24 07:18> Surgical History Surgical History: Surgical History H/O sinus surgery (~2011) Septoplasty History of delivery (~08/2022) History of surgical removal of ganglion cyst (~01/14/24) Rt Wrist <Ammon Lynn MD - Last Filed: 10/25/24 07:18> Family History Family History: Family History Father Congestive heart failure <Ammon Lynn MD - Last Filed: 10/25/24 07:18> Social History Social History: Social History Smoking status: Never smoker Alcohol intake: current Drinks per week: 1 Substance use: never Substance use type: does not use Do You Feel Safe in your Home?: Yes Lack of Transportation: No Lack of Food: Never True Current Housing: I Have Housing Concerned About Future Housing: No Difficulty Paying Gas/Electric Bills: No Difficulty Paying for Meds: No Currently Unemployed: No Education: Master's Degree or Higher Difficulty w/ Childcare or Family Care: No Living arrangements: with family Spiritual care concerns: No <Ammon Lynn MD - Last Filed: 10/25/24 07:18> Exam Narrative: GENERAL: [Well-appearing, well-nourished, and in no acute distress.] HEAD: [Normocephalic, atraumatic.] EYES: [PERRLA and EOMI.] ENT: Nares clear, no rhinorrhea or epistaxis. Mucous membranes moist. NECK: Supple. CHEST: [Clear to auscultation. No respiratory distress.] HEART: [Regular rate and rhythm]. No murmur heard. [Normal peripheral pulses.] ABDOMEN: [Soft, nondistended], [nontender], [No rigidity or guarding] EXTREMITIES: Normal range of motion. [No edema.] SKIN: Warm, dry, no rash. NEURO: [No focal deficits]. Alert and oriented [x3.] PSYCH: [Normal mood and affect.] <Ammon Lynn MD - Last Filed: 10/25/24 07:18> Course Course Emergency Course: Patient is 8 days from a and signed out to me pending ultrasound given that she started passing bloody clots 3 days after her delivery. She denies any fever or back pain by report. Patient had declined pelvic examination. Patient had contacted the on-call line for her Ob Gyne which is located [facility]. Her hemoglobin was reportedly stable. I did review see the patient's hemoglobin was 11.3 which is improved from previous although the last known lab result and EMR was from 2 years ago. Ultrasound shows possible hematoma versus retained products of conception. Patient is otherwise well appearing evaluated at bedside by myself. She denies any pain. She states she did pass another blood clot after she stood up after the ultrasound. discuss the findings of the ultrasound with patient but given she had declined pelvic examination and is otherwise hemodynamically stable with appropriate vitals, reasonable to discharge home with strict return precautions to the emergency department as well as instructions to follow-up with her Ob Gyne to see if her follow-up appointment which is currently scheduled for November 2024 should be moved up. Given that she is technically anemic, will also prescribe course of ferrous sulfate and acetaminophen for pain. <Frances Means MD - Last Filed: 10/25/24 08:40> Vital Signs Vital signs: Vital Signs Temperature 97.9 F 10/25/24 05:06 Pulse Rate 72 10/25/24 05:06 Respiratory Rate 16 10/25/24 05:06 Blood Pressure 115/78 10/25/24 05:06 Pulse Oximetry 100 10/25/24 05:06 Oxygen Delivery Room Air 10/25/24 05:06 Temperature 97.9 F 10/25/24 05:06 Pulse Rate 80 10/25/24 08:28 Respiratory Rate 14 10/25/24 08:28 Blood Pressure 109/89 10/25/24 08:28 Pulse Oximetry 100 10/25/24 08:28 Oxygen Delivery Room Air 10/25/24 05:06 <Ammon Lynn MD - Last Filed: 10/25/24 07:18> Vital Signs Temperature 97.9 F 10/25/24 05:06 Pulse Rate 72 10/25/24 05:06 Respiratory Rate 16 10/25/24 05:06 Blood Pressure 115/78 10/25/24 05:06 Pulse Oximetry 100 10/25/24 05:06 Oxygen Delivery Room Air 10/25/24 05:06 Temperature 97.9 F 10/25/24 05:06 Pulse Rate 80 10/25/24 08:28 Respiratory Rate 14 10/25/24 08:28 Blood Pressure 109/89 10/25/24 08:28 Pulse Oximetry 100 10/25/24 08:28 Oxygen Delivery Room Air 10/25/24 05:06 <Frances Means MD - Last Filed: 10/25/24 08:40> MDM - OB/Uterine Contractions MDM Narrative Medical decision making narrative: 29-year-old female who is 8 days from a vaginal delivery after Caesarean section previously. She has been having large voluminous blood clot passage and vaginal bleeding for the last 3 days. Initially after her delivery she was not having vaginal bleeding but did have some tearing requiring suture repair. Went home the next day without complication. Denies any fever, chills, back pain, pelvic pain. The vaginal bleeding is painless and she otherwise feels in her normal state of health. Vital signs reassuring without any tachycardia, blood pressure concerns, hypotension, fever, hypoxia. Abdomen is soft and nondistended. Patient politely declined and deferred pelvic examination given that we are obtaining a transabdominal transvaginal ultrasound this issue. Laboratory studies were obtained including a CBC, CMP, PT, PTT Laboratory studies show no leukocytosis. Hemoglobin 11.3 which is better than her previous levels from 2 years prior ago. Likely around patient's baseline. Platelets within normal limits. Coagulation panel normal. No indications for RhoGAM at this time. Electrolyte panel within normal limits, normal renal and hepatic function panel. Beta quant 12.41 in line with recently giving . Patient is pending OB ultrasonography at this time. I went and re-evaluated the patient who still had symptoms and we discussed her blood work. Patient will be signed out to the oncoming ED physician pending ultrasound. <Ammon Lynn MD - Last Filed: 10/25/24 07:18> Medical Records Attestation: I reviewed the patient's medical records. <Ammon Lynn MD - Last Filed: 10/25/24 07:18> Lab Data Attestation: I reviewed the patient's lab results. <Ammon Lynn MD - Last Filed: 10/25/24 07:18> Result diagrams: 10/25/24 05:26 10/25/24 05:26 <Ammon Lynn MD - Last Filed: 10/25/24 07:18> Labs: Lab Results 10/25/24 Range/Units 05:26 WBC 7.8 (4.5-10.0) K/mm3 RBC 3.75 L (4.2-5.4) M/mm3 Hgb 11.3 L (12.0-15.0) g/dL Hct 34.1 L (37.0-47.0) % MCV 90.9 (80-100) fl MCH 30.1 (26-34) pg MCHC 33.1 (32-36) g/dl RDW 12.8 (11.5-14.5) % Plt Count 292 D (150-375) k/mm3 MPV 11.3 H (7.4-10.4) fl Immature Gran % (Auto) 0.5 (0-0.5) % Neut % (Auto) 66.7 (45.5-73.1) % Lymph % (Auto) 23.8 (18.3-44.2) % Mccreary % (Auto) 6.3 (2.6-8.5) % Eos % (Auto) 1.9 (0-4.4) % Baso % (Auto) 0.8 (0.2-1.2) % Lymph # (Auto) 1.85 (0.9-3.2) K/mm3 Mccreary # (Auto) 0.5 (0.1-0.6) K/mm3 Eos # (Auto) 0.2 (0-0.3) K/mm3 Baso # (Auto) 0.1 (0.0-0.1) K/mm3 Abs Immat Gran (auto) 0.04 H (0.00-0.031) K/mm3 Absolute Neuts (auto) 5.2 (1.3-6.7) K/mm3 Absolute Nucleated RBC 0.000 (0.0-0.012) K/mm3 Nucleated RBC % 0.0 (0.0-0.2) % PT 14.4 (11.1-14.7) Seconds INR 1.1 APTT 28.4 (22.3-36.8) Seconds Sodium 138 (137-145) mmol/L Potassium 3.8 (3.4-5.0) mmol/L Chloride 107 (98-107) mmol/L Carbon Dioxide 25 (22-30) mmol/L Anion Gap 6 (4-12) mmol/L BUN 13 (7-17) mg/dL Creatinine 0.80 (0.7-1.0) mg/dL Estim Creat Clear Calc 89 ml/min Estimated GFR > 60 (59 - ) Glucose 92 (65-110) mg/dL Calcium 8.5 (8.4-10.2) mg/dL Total Bilirubin 0.5 (0.2-1.3) mg/dL AST 21 (14-36) U/L ALT 19 (6-35) U/L Alkaline Phosphatase 94 (38-126) U/L Total Protein 7.0 (6.3-8.2) g/dL Albumin 3.8 (3.5-5.1) g/dL Beta HCG, Quant 12.41 mIU/ML Blood Type O Positive Antibody Screen Negative Screen Not Reportable Baby's Blood Type Not Reportable Baby's VIPIN Not Reportable Doses of RhIg Required 0 <Ammon Lynn MD - Last Filed: 10/25/24 07:18> Lab Results 10/25/24 Range/Units 05:26 WBC 7.8 (4.5-10.0) K/mm3 RBC 3.75 L (4.2-5.4) M/mm3 Hgb 11.3 L (12.0-15.0) g/dL Hct 34.1 L (37.0-47.0) % MCV 90.9 (80-100) fl MCH 30.1 (26-34) pg MCHC 33.1 (32-36) g/dl RDW 12.8 (11.5-14.5) % Plt Count 292 D (150-375) k/mm3 MPV 11.3 H (7.4-10.4) fl Immature Gran % (Auto) 0.5 (0-0.5) % Neut % (Auto) 66.7 (45.5-73.1) % Lymph % (Auto) 23.8 (18.3-44.2) % Mccreary % (Auto) 6.3 (2.6-8.5) % Eos % (Auto) 1.9 (0-4.4) % Baso % (Auto) 0.8 (0.2-1.2) % Lymph # (Auto) 1.85 (0.9-3.2) K/mm3 Mccreary # (Auto) 0.5 (0.1-0.6) K/mm3 Eos # (Auto) 0.2 (0-0.3) K/mm3 Baso # (Auto) 0.1 (0.0-0.1) K/mm3 Abs Immat Gran (auto) 0.04 H (0.00-0.031) K/mm3 Absolute Neuts (auto) 5.2 (1.3-6.7) K/mm3 Absolute Nucleated RBC 0.000 (0.0-0.012) K/mm3 Nucleated RBC % 0.0 (0.0-0.2) % PT 14.4 (11.1-14.7) Seconds INR 1.1 APTT 28.4 (22.3-36.8) Seconds Sodium 138 (137-145) mmol/L Potassium 3.8 (3.4-5.0) mmol/L Chloride 107 (98-107) mmol/L Carbon Dioxide 25 (22-30) mmol/L Anion Gap 6 (4-12) mmol/L BUN 13 (7-17) mg/dL Creatinine 0.80 (0.7-1.0) mg/dL Estim Creat Clear Calc 89 ml/min Estimated GFR > 60 (59 - ) Glucose 92 (65-110) mg/dL Calcium 8.5 (8.4-10.2) mg/dL Total Bilirubin 0.5 (0.2-1.3) mg/dL AST 21 (14-36) U/L ALT 19 (6-35) U/L Alkaline Phosphatase 94 (38-126) U/L Total Protein 7.0 (6.3-8.2) g/dL Albumin 3.8 (3.5-5.1) g/dL Beta HCG, Quant 12.41 mIU/ML Blood Type O Positive Antibody Screen Negative Screen Not Reportable Baby's Blood Type Not Reportable Baby's VIPIN Not Reportable Doses of RhIg Required 0 <Frances Means MD - Last Filed: 10/25/24 08:40> Imaging Data Radiologist's impression: Impressions Pelvis Ultrasound 10/25/24 07:56 IMPRESSION: 1. Thickened endometrial complex, which may be hematoma or retained products of conception. <Frances Means MD - Last Filed: 10/25/24 08:40> Discharge Plan Discharge Clinical Impression: hemorrhage, delayed (> 24 hrs) <Ammon Lynn MD - Last Filed: 10/25/24 07:18> Patient Disposition: Home, Self-Care <Ammon Lynn MD - Last Filed: 10/25/24 07:18> Condition: Stable <Ammon Lynn MD - Last Filed: 10/25/24 07:18> Instructions: Antibiotic Form, Bleeding (ED) <Ammon Lynn MD - Last Filed: 10/25/24 07:18> Additional Instructions: Your bhcg was 12.41 and your hemoglobin was 11.3 (which is better than your last on file though that was back in 2021). Call your ObGyn through [employer] and see if they would like to see you sooner than Your current scheduled visit. You did have a thickened endometrium on ultrasound which could be a hematoma (blood clot) or retrained products of conception. return to the emergency department if you have any new or worsening symptoms such as pain not responding to acetaminophen/Tylenol ( maximum 4000 mg per day and safe to take post /if ), saturating 2 maxi pads an hour for 2 or 3 hours, fainting/nearly passing out/ lightheadedness, shortness of breath, etc. you do have some evidence of anemia and see can supplement with iron tablets/ ferrous sulfate. This can be taken every other day for few were GI side effects but with similar efficacy. make sure you take it with vitamin-C such as orange juice to improve absorption. <Ammon Lynn MD - Last Filed: 10/25/24 07:18> Prescriptions: New acetaminophen 500 mg capsule 1,000 mg PO Q6H PRN (Reason: pain) Qty: 30 0RF ferrous sulfate 325 mg (65 mg iron) tablet 325 mg PO EVERY OTHER DAY 30 Days Qty: 15 0RF No Action buspirone 5 mg tablet 15 mg PO BID levothyroxine 50 mcg Tablet 50 mcg PO DAILY albuterol sulfate 90 mcg/actuation Hfa Aerosol Inhaler 2 puff INHALATION QID PRN (Reason: Wheezing) Patient Comments: PT stated couple of years multivitamin Tablet 1 tablet PO DAILY <Ammon Lynn MD - Last Filed: 10/25/24 07:18> Follow-up/Referrals: Alda,Jina Rahman APRN [Primary Care Provider] - <Ammon Lynn MD - Last Filed: 10/25/24 07:18> Stand Alone Forms: Work/School Release IP <Ammon Lynn MD - Last Filed: 10/25/24 07:18> Time of Disposition: 08:37 <Ammon Lynn MD - Last Filed: 10/25/24 07:18> 08:37 <Frances Means MD - Last Filed: 10/25/24 08:40>
[2024-10-25 07:24] VITALS: BP 93/78; PULSE 77; RESP 18; O2SAT 100
[2024-10-25 08:28] VITALS: BP 109/89; PULSE 80; RESP 14; O2SAT 100
== END 2024-10-25 08:44 | disposition home or self-care (01) ==
PROVIDERS: Student in an Organized Health Care Education/Training Program; Emergency Provider Student in an Organized Health Care Education/Training Program; PCP Registered Nurse
DX: O72.2 Delayed and secondary postpartum hemorrhage (principal); E03.9 Hypothyroidism, unspecified
CPT/HCPCS: 36415; 76856; 80053; 84702; 85025; 85461; 85610; 85730; 86850; 86900; 86901; 99284